=== PATIENT | female | born 1950 | race Hispanic/Latino ===

== ENCOUNTER 2019-02-06 10:25 | Outpatient (CLI) | payer MEDICARE ==
--- NOTE | 2019-02-06 15:30 | Mammography Report ---
BONE DEXA CLINICAL: Postmenopausal and history of hyperparathyroidism. TECHNIQUE: 3 site bone DEXA performed on an Hologic scanner. FINDINGS: The average BMD of the lumbar spine L1-L4 is 0.843g/cm squared with a T score of -1.9 and a Z score o f +0.1. The average total BMD of the left hip is 0.751 g/cm squared with a T score of -1.6and a Z score of -0 .2. The left femoral neck BMD is 0.599 g/cm squared with a T score of -2.3 and a Z score of -0.6. IMPRESSION: 1. WHO classification: Osteopenia with increased fracture risk based on spine measurements. 2. WHO classification Osteopenia with increased fracture risk based on left hip measurements. RECOMMENDATION: Clinical correlation and routine screening. Definitions: BMD equal bone mineral density T score = BMD related to peak bone mass of young adult (Remi expressed an standard deviation) Z score = age-matched BMD expressed in SD World health organization (WHO) diagnostic criteria Normal T score greater than equal to 1 standard deviation Osteopenia T score between -1 and -2.4 standard deviation Osteoporosis T score -2.5 standard deviation or below. Note: BMD is not the only risk factor for fracture; also consider factors such as the patient's age, risk of falling, previous osteoporotic fracture, family history of osteoporotic fractures, current sm oker and low body weight. Z scores are not calculated if greater than 80 years of age. Signer Name: Awais Red MD Signed: 02/06/2019 3:26 PM Workstation Name: [id number]
== END 2019-02-06 10:26 | disposition home or self-care (01) ==
LOC: SPVWC 10:25
PROVIDERS: ATTEND Internal Medicine
DX: M85.80 Other specified disorders of bone density and structure, unspecified site (principal); M81.0 Age-related osteoporosis without current pathological fracture
CPT/HCPCS: 77080